=== PATIENT | female | born 1950 | race Caucasian/White ===

== ENCOUNTER → 2017-10-13 | Outpatient (CLI) | payer OTHER ==
[~2017-10-13] MED LIST: ASPI325; CARV6.25 PO; CONEST.625; EZET10; NAPR220; Prozac20 MG; ROSU5
== END | disposition home or self-care (01) ==
LOC: LAB SHORT 09:01 → PLD 09:01
DX: D22.5 Melanocytic nevi of trunk (principal)
CPT/HCPCS: 88305

== ENCOUNTER 2018-10-08 11:51 | Day surgery (SDC) | payer OTHER ==
[~2018-10-08] VITALS: Ht 157.5 cm; Wt 82.6 kg
--- NOTE | 2018-10-08 12:31 | NUR ---
10/08/18 1231 Meka Salvador PT WAS DRINKING WATER IN THE LOBBY. DR LEE NOTIFIED. PT WILL BE DELAYED UNTIL THE 2 HOUR DAVID AT 1400. PT NOTIFIED. PT RESTING COMFORTABLY IN PRE OP. CALL LIGHT WITHIN REACH, SO AT BEDSIDE. WILL CONTINUE TO MONITOR.
== END 2018-10-08 15:40 | disposition home or self-care (01) ==
LOC: ORSCSDS 11:51
PROVIDERS: Internal Medicine Gastroenterology
PROC: 0DBN8ZX Excision of Sigmoid Colon, Via Natural or Artificial Opening Endoscopic, Diagnostic (ICD-10-PCS; principal; 2018-10-08 13:00)
PROC: 0DBM8ZX Excision of Descending Colon, Via Natural or Artificial Opening Endoscopic, Diagnostic (ICD-10-PCS; principal; 2018-10-08 13:00)
DX: Z12.11 Encounter for screening for malignant neoplasm of colon (principal); D12.4 Benign neoplasm of descending colon; D12.5 Benign neoplasm of sigmoid colon; I10 Essential (primary) hypertension; E78.00 Pure hypercholesterolemia, unspecified; E78.70 Disorder of bile acid and cholesterol metabolism, unspecified; K57.30 Diverticulosis of large intestine without perforation or abscess without bleeding; Z87.891 Personal history of nicotine dependence; Z79.899 Other long term (current) drug therapy
CPT/HCPCS: 88305; J1980; J2704; J7120

== ENCOUNTER 2022-02-12 07:48 | Day surgery (SDC) | payer OTHER ==
[~2022-02-12] VITALS: Ht 157.5 cm; Wt 74.9 kg
[2022-02-12] MEDS ORDERED: Amitriptyline H10 MG PO (08:15)
== END 2022-02-12 09:38 | disposition home or self-care (01) ==
LOC: ORSCSDS 07:48
PROVIDERS: Ophthalmology
PROC: 08RK3JZ Replacement of Left Lens with Synthetic Substitute, Percutaneous Approach (ICD-10-PCS; principal; 2022-02-12 09:00)
DX: H25.12 Age-related nuclear cataract, left eye (principal); I25.10 Atherosclerotic heart disease of native coronary artery without angina pectoris; I10 Essential (primary) hypertension; F32.A Depression, unspecified; E66.9 Obesity, unspecified; Z68.30 Body mass index [BMI] 30.0-30.9, adult; Z79.899 Other long term (current) drug therapy
CPT/HCPCS: J2001; J2250; J3010; J3301; J7040; V2632

== ENCOUNTER 2022-04-09 06:47 | Day surgery (SDC) | payer OTHER ==
[~2022-04-09] VITALS: Ht 157.5 cm; Wt 75.9 kg
[~2022-04-09 06:47] MED LIST changes: +Amitriptyline H10 MG PO
--- NOTE | 2022-04-09 07:08 | NUR ---
04/09/22 0708 LUX RENDON TETRACAINE DROP PLACED AT 0703 IN RIGHT EYE, PLEGDETTE PLACED AT 0704 IN RIGHT EYE PT TOLERATED WELL
[2022-04-18] MEDS ORDERED: Percocet 5-3251 EACH PO (10:49)
[2022-04-18] MEDS ORDERED: ONDA4ODT MM (10:49)
== END 2022-04-09 08:46 | disposition home or self-care (01) ==
LOC: ORSCSDS 06:47
PROVIDERS: Ophthalmology
PROC: 08RJ3JZ Replacement of Right Lens with Synthetic Substitute, Percutaneous Approach (ICD-10-PCS; principal; 2022-04-09 08:00)
DX: H25.11 Age-related nuclear cataract, right eye (principal); I25.10 Atherosclerotic heart disease of native coronary artery without angina pectoris; H52.201 Unspecified astigmatism, right eye; I10 Essential (primary) hypertension; F32.A Depression, unspecified; Z79.899 Other long term (current) drug therapy
CPT/HCPCS: J2001; J2250; J3010; J3301; J7040; V2632

== ENCOUNTER 2022-04-14 21:37 | Emergency (ER) | payer OTHER ==
[~2022-04-14] VITALS: Ht 157.5 cm; Wt 72.6 kg
[2022-04-14 22:35] LABS: BASOPHILS ABSOLUTE AUTO 0.05 K/mm3 (0.00-0.23); BASOPHILS PERCENT AUTO 0 % (0-2); EOSINOPHILS PERCENT AUTO 0 % (0-6); Hematocrit 44.9 % (33.0-51.0); Hemoglobin 15.3 g/dL (11.5-16.0); IMMATURE GRAN ABSOLUTE AUTO 0.04 K/mm3 (0.00-0.10); IMMATURE GRAN PERCENT AUTO 0 % (0-1); LYMPHOCYTES ABSOLUTE AUTO 0.91 K/mm3 (0.84-5.20); LYMPHOCYTES PERCENT AUTO 7 % (21-46); MONOCYTES PERCENT AUTO 4 % (4-13); Mean Corpuscular HGB 30.5 pg (26.0-34.0); Mean Corpuscular HGB Conc 34.1 g/dL (31.5-36.5); Mean Corpuscular Volume 90 fL (80-100); Mean Platelet Volume 9.9 fL (9.1-12.4); NEUTROPHILS ABSOLUTE AUTO 12.49 K/mm3 (1.96-9.15); NEUTROPHILS PERCENT AUTO 89 % (41-73); Platelet Count 312 K/mm3 (150-400); RDW Coefficient Variation 12.9 % (11.7-14.2); RDW Standard Deviation 42.3 fL (35.1-46.3); Red Blood Cell Count 5.01 M/mm3 (3.80-5.20); White Blood Cell Count 14.09 K/mm3 (4.00-11.30)
[2022-04-14] MEDS ORDERED: COREG25 MG PO (23:05)
[2022-04-14 23:15] LABS: Source, Urine Clean Catch
[2022-04-14 23:16] LABS: Albumin, Blood 3.8 g/dL (3.4-5.0); Albumin/Globulin Ratio 0.9 (0.8-1.8); Bilirubin, Total 0.8 mg/dL (0.1-1.0); Bun/Creatinine Ratio 24.1 (12.0-20.0); Calcium, Blood 10.2 mg/dL (8.5-10.1); Globulin, Blood 4.2 g/dL (2.2-4.0)
[2022-04-14 23:48] LABS: Appearance, Urine Hazy (Clear); Bilirubin, Urine Neg (Neg); Blood, Urine 5+ (Neg); Color, Urine Yellow (P-Yellow); Glucose Qualitative, Urine Neg (Neg); Ketones, Urine 4+ (Neg); Leukocyte Esterase, Urine 1+ (Neg); Nitrite, Urine Neg (Neg); Protein, Urine 2+ (Neg); Specific Gravity, Urine 1.025 (1.003-1.022); Urobilinogen, Urine NORM (Normal)
[2022-04-15 00:13] LABS: Red Blood Cells, Urine 25-50 /hpf (0-2)
[2022-04-15 00:14] LABS: Squamous Epithelial Cells Few /hpf (Few)
[2022-04-15 00:15] LABS: Bacteria Few /hpf
[2022-04-15] MEDS ORDERED: Vibramycin100 MG PO (01:31)
[2022-04-15] MEDS ORDERED: Percocet 5-3251 EACH PO (01:31)
[2022-04-15] MEDS ORDERED: ONDA4ODT SL (01:31)
[2022-04-18] MEDS ORDERED: Percocet 5-3251 EACH PO (10:49)
[2022-04-18] MEDS ORDERED: ONDA4ODT MM (10:49)
== END 2022-04-15 01:52 | disposition home or self-care (01) ==
LOC: ER 21:37
PROVIDERS: Physician Assistant; Student in an Organized Health Care Education/Training Program
DX: N13.2 Hydronephrosis with renal and ureteral calculous obstruction (principal); J18.9 Pneumonia, unspecified organism; I25.10 Atherosclerotic heart disease of native coronary artery without angina pectoris; Z88.1 Allergy status to other antibiotic agents; Z88.8 Allergy status to other drugs, medicaments and biological substances; Z88.5 Allergy status to narcotic agent; Z91.048 Other nonmedicinal substance allergy status; Z79.899 Other long term (current) drug therapy
CPT/HCPCS: 36415; 74177; 80053; 81001; 83690; 84484; 85025; 87086; 93005; 93010; 96374-59; 96375; 99284-25; A9270; J1885; J2405; Q9967

== ENCOUNTER → 2022-05-13 | Outpatient (CLI) | payer OTHER ==
[~2022-05-13] MED LIST changes: +COREG25 MG PO; +ONDA4ODT MM; +ONDA4ODT SL; +Percocet 5-3251 EACH PO; +Vibramycin100 MG PO
[2022-05-14 13:10] LABS: HPV 16 Negative (Negative); HPV 18 Negative (Negative); HPV OTHER HR TYPES Negative (Negative)
== END | disposition home or self-care (01) ==
LOC: LAB 11:29 → LAB SHORT 11:29
PROVIDERS: Obstetrics & Gynecology
DX: Z01.419 Encounter for gynecological examination (general) (routine) without abnormal findings (principal)
CPT/HCPCS: 87624; G0123